=== PATIENT | male | born 1995 | race Two or more races ===

== ENCOUNTER 2017-12-02 13:03 | Emergency (ER) | payer OTHER ==
[2017-12-02 13:08] VITALS: RESP 18
--- NOTE | 2017-12-02 13:24 | EDPHY ---
H & P Stated Complaint: abd pain x 5 days Time Seen by Provider: 12/02/17 13:23 - Personal History Current Tetanus Diphtheria and Acellular Pertussis (TDAP): Yes - Medical/Surgical History Hx Asthma: No Hx Chronic Respiratory Disease: No Hx Diabetes: No Hx Cardiac Disease: No Hx Renal Disease: No Hx Cirrhosis: No Hx Alcoholism: No Hx HIV/AIDS: No Hx Splenectomy or Spleen Trauma: No Other PMH: shoulder surgery - Social History Smoking Status: Never smoked Constitutional: Initial Vital Signs Temperature (C) 38.5 C H 12/02/17 13:06 Heart Rate 97 12/02/17 13:06 Respiratory Rate 18 12/02/17 13:06 Blood Pressure 106/80 12/02/17 13:06 O2 Sat (%) 96 12/02/17 13:06 Allergies/Adverse Reactions: No Known Allergies Allergy (Unverified 12/02/17 13:05) Home Medications: Medication Instructions Recorded Cephalexin [Keflex (RX)] 500 mg PO TID #30 cap 12/02/17 Ibuprofen 12/02/17 Ibuprofen [Motrin] 800 mg PO Q8 #20 tab 12/02/17 Medical Decision Making ED Course/Re-evaluation: CHIEF COMPLAINT: Fever, dehydration HISTORY OF PRESENT ILLNESS: This patient is a 22 year old male 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 On Friday, five days ago, he developed a headache. He then developed a sore throat and stomach ache. He has been vomiting and has diarrhea. The patient endorses diffuse abdominal pain associated with his vomiting and bowel movements. He has been febrile. He denies chest pain, shortness of breath, neck pain, urinary complaints, or other associated symptoms. REVIEW OF SYSTEMS: A 10 point review of systems was performed and is negative with the exception of the elements mentioned in the history of present illness. PHYSICAL EXAM: HR, BP, O2 Sat, RR. Temp noted General Appearance: Alert, well hydrated, appropriate, and non-toxic appearing. Head: Atraumatic without scalp tenderness or obvious injury Eyes: Pupils equal, round, reactive to light and accommodation, EOMI, no trauma , no injection. Ears: Clear bilaterally, no perforation, normal landmarks Nose: Atraumatic, no rhinorrhea, clear. Throat: Erythematous. No exudates. Mucus membranes dry. Neck: Posterior and anterior lymphadenopathy. Supple, nontender. Respiratory: No retractions, no distress, no wheezes, and no accessory muscle use. Lungs are clear to auscultation bilaterally. Cardiovascular: Regular rate and rhythm, no murmurs, rubs, or gallops. Bilateral carotid, radial, dorsalis pedis, and posterior tibial pulses intact. Good capillary refill all extremities. Gastrointestinal: Abdomen is soft, nontender, non-distended, no masses, no rebound, no guarding, no peritoneal signs. Musculoskeletal: Normal active ROM of all extremities, atraumatic. Neurological: Alert, appropriate, and interactive. The patient has normal DTRs and non-focal cranial nerves, motor, sensory, and cerebellar exam. Skin: No rashes, good turgor, no nodules on palpation. Past medical history: Denies. Past surgical history: Noncontributory. Family history: Noncontributory. 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 DIFFERENTIAL DIAGNOSIS: The differential diagnosis for the patient's fever included but was not limited to viral pharyngitis, bacterial pharyngitis, mononucleosis, pneumonia, viral syndrome, meningitis, and sepsis. MEDICAL DECISION MAKING: This 22 y/o male presents with fever, headache, sore throat, and GI complaints. Pharyngeal erythema and posterior/anterior lymphadenopathy on exam. Exam consistent with bacterial throat infection. IV established. Plan to administer 2L IV NS, 4mg IV Zofran, 30mg IV Ketorolac, 10mg IV Decadron, and 1g IV Ceftriaxone. Plan for Monospot given the patients posterior and anterior cervical lymphadenopathy. [place] test negative. 14:38 Reassessed. Discussed results. He is feeling better following medication administration and IVF. Plan to discharge home in good condition with prescription for Keflex. Follow up and return precautions discussed. The patient is comfortable with this plan. - Data Points Laboratory Results: 12/02/17 13:57 Monoscreen NEGATIVE (NEGATIVE) Medications Given: Discontinued Medications Dexamethasone (Decadron Injection) 10 mg IVP EDNOW ONE Stop: 12/02/17 13:32 Last Admin: 12/02/17 14:03 Dose: 10 mg Ceftriaxone Sodium/Dextrose (Rocephin 1 Gm (Premix)) 50 mls @ 100 mls/hr IV EDNOW ONE PRN Reason: Protocol Stop: 12/02/17 14:00 Last Admin: 12/02/17 14:04 Dose: 50 mls Sodium Chloride (Ns) 1,000 mls @ 0 mls/hr IV EDNOW ONE; Wide Open PRN Reason: Protocol Stop: 12/02/17 13:31 Last Admin: 12/02/17 14:04 Dose: 1,000 mls Sodium Chloride (Ns) 1,000 mls @ 0 mls/hr IV EDNOW ONE; Wide Open PRN Reason: Protocol Stop: 12/02/17 13:31 Last Admin: 12/02/17 14:04 Dose: 1,000 mls Ketorolac Tromethamine (Toradol) 30 mg IVP EDNOW ONE Stop: 12/02/17 13:31 Last Admin: 12/02/17 14:03 Dose: 30 mg Ondansetron HCl (Zofran) 4 mg IVP EDNOW ONE Stop: 12/02/17 13:31 Last Admin: 12/02/17 14:03 Dose: 4 mg Departure - Departure Disposition: Home, Routine, Self-Care Clinical Impression: Acute bacterial pharyngitis Condition: Good Instructions: Pharyngitis (ED), Strep Throat (ED) Additional Instructions: Take Keflex as prescribed. Follow-up with your primary doctor within 2-3 days. Return to the Emergency Department for high fever, difficulty swallowing, difficulty tolerating liquids, neck pain or stiffness, shortness of breath or other concerns. Take ibuprofen as directed for pain. Drink plenty of fluids. Referrals: NISA HOFFMAN [Primary Care Provider] - As per Instructions Prescriptions: Cephalexin [Keflex (RX)] 500 mg PO TID #30 cap Ibuprofen [Motrin] 800 mg PO Q8 #20 tab Report Scribed for: Carlos Barber Report Scribed by: Jaye Silverio Date of Report: 12/02/17 Time of Report: 14:38
[2017-12-02] MEDS ORDERED: KETOROLAC 30 MG/1 ML SDV IVP ONE (13:30)
[2017-12-02] MEDS ORDERED: NS 1,000 ML IV ONE ×2 (13:30)
[2017-12-02] MEDS ORDERED: ONDANSETRON 4 MG/2 ML VIAL IVP ONE (13:30)
[2017-12-02] MEDS ORDERED: DEXAMETHASONE 10 MG/ML VIAL IVP ONE (13:31)
[2017-12-02 15:07] VITALS: BP 112/76; PULSE 77; TEMP 98.4; O2SAT 98
== END 2017-12-02 15:07 | disposition home or self-care (01) ==
DX: J02.8 Acute pharyngitis due to other specified organisms (principal); B96.89 Other specified bacterial agents as the cause of diseases classified elsewhere; E86.9 Volume depletion, unspecified
CPT/HCPCS: 96374; J0696; J1100; J1885; J2405